=== PATIENT | male | born 1995 | race Caucasian/White ===

== ENCOUNTER 2017-09-30 11:09 | Emergency (ER) | payer BC ==
[2017-09-30 11:14] VITALS: BP 123/71; PULSE 65; RESP 17; TEMP 98.2; O2SAT 95
[2017-09-30] MEDS ORDERED: FLUORESCEIN SODIUM 1 MG STRIP OP ONE (11:26)
[2017-09-30] MEDS ORDERED: PROPARACAINE 0.5% 15 ML OPHT DROP OP ONE (11:26)
[2017-09-30] MEDS ORDERED: ERYTHROMYCIN 0.5% 1 GM OPHT.OINT RTEYE ONE (11:51)
--- NOTE | 2017-09-30 11:53 | EDPHY ---
General Narrative: CHIEF COMPLAINT: Eye pain, eye redness HISTORY OF PRESENT ILLNESS: Patient complains of 1 day history of right eye redness, pain and watering. No visual disturbance. There is some swelling of the lower eyelid. No headache. No diplopia. No pain with movement of the eye. No fever chills. No redness of the face or around the eye. No trauma or injury. Does not were contacts or glasses. No other associated complaints or modifying factors. REVIEW OF SYSTEMS: Ten systems reviewed and are negative unless otherwise noted in the HPI PAST MEDICAL HISTORY: None PAST SURGICAL HISTORY: None SOCIAL HISTORY: Nonsmoker. Currently student at [employer]. Originally from [place] FAMILY HISTORY: Noncontributory EXAMINATION General Appearance: Alert, no distress Head: Normocephalic and atraumatic ENT. Pupils equal round reactive to light. Mild right-sided conjunctival injection. Mild swelling of the right lower lid. No surrounding erythema. No painful extraocular eye movements. No nystagmus. Fluorescein exam reveals no uptake or branching lesions. Cardiovascular: Pulses normal throughout. Brisk cap refill Neurological: A&O, sensory symmetric, strength symmetric Skin: Warm and dry, no rash. No periorbital cellulitis. No facial cellulitis. Extremities: Nontender, no pedal edema Psychiatric: Mood and affect normal DIFFERENTIAL DIAGNOSES: Including but not limited to viral conjunctivitis bacterial conjunctivitis, blepharitis, cellulitis, periorbital cellulitis MDM: 11:50 a.m. Acute right-sided conjunctivitis with early blepharitis. There is a early mild erythema and edema to the lower lid margin. No evidence of orbital or periorbital cellulitis. Thus I ordered erythromycin topical as well as Augmentin oral. There is no corneal abrasion or branching lesion. This appears to be a simple conjunctivitis. We will treat him as such. Follow up with Ophthalmology if needed. ED precautions as discussed. He is not were contacts or glasses. Tetanus is up-to-date. ED Precautions: Worsening pain. Erythema, edema, cyanosis, pallor, paresthesia or anesthesia. - History Smoking Status: Current some day smoker - Objective Vital Signs: Initial Vital Signs Temperature (C) 98.2 F 09/30/17 11:12 Heart Rate 65 09/30/17 11:12 Respiratory Rate 17 09/30/17 11:12 Blood Pressure 123/71 H 09/30/17 11:12 O2 Sat (%) 95 09/30/17 11:12 O2 Delivery Mode Room Air Allergies/Adverse Reactions: No Known Allergies Allergy (Verified 09/30/17 11:11) Home Medications: Medication Instructions Recorded Amoxicillin/Clavulanate Pot 875 mg PO BID #14 tab 09/30/17 [Augmentin 875 MG TAB (*)] Medications Given: Discontinued Medications Erythromycin (Erythromycin 0.5%) 1 khadar RTEYE ONCE ONE Stop: 09/30/17 11:52 Last Admin: 09/30/17 12:02 Dose: 1 khadar Fluorescein Sodium ([id number]) 1 mg OP EDNOW ONE Stop: 09/30/17 11:27 Last Admin: 09/30/17 11:38 Dose: Not Given Proparacaine HCl (Alcaine 0.5%) 1 drops OP EDNOW ONE Stop: 09/30/17 11:27 Last Admin: 09/30/17 11:39 Dose: Not Given Departure - Departure Disposition: Home, Routine, Self-Care Clinical Impression: Acute conjunctivitis of right eye Qualifiers: Acute conjunctivitis type: unspecified Qualified Code(s): H10.31 - Unspecified acute conjunctivitis, right eye Condition: Good Instructions: Amoxicillin/Clavulanate Potassium (By mouth), Erythromycin (On the skin), Blepharitis (ED), Conjunctivitis (ED) Additional Instructions: 1. Topical erythromycin as prescribed to completion 2. Oral Augmentin as prescribed to completion 3. Hand hygiene as discussed 4. ED precautions as discussed Referrals: NONE *PRIMARY CARE P,. [Primary Care Provider] - As per Instructions Georgette Marin MD [Non Staff Provider (MD)] - As per Instructions Prescriptions: Amoxicillin/Clavulanate Pot [Augmentin 875 MG TAB (*)] 875 mg PO BID #14 tab
== END 2017-09-30 12:00 | disposition home or self-care (01) ==
DX: H10.31 Unspecified acute conjunctivitis, right eye (principal); F17.200 Nicotine dependence, unspecified, uncomplicated